=== PATIENT | female | born 1995 ===

== ENCOUNTER 2017-06-14 00:36 | Emergency (ER) | payer OTHER ==
[2017-06-14 00:47] VITALS: PULSE 89
--- NOTE | 2017-06-14 01:20 | C.PDOC ---
History Of Present Illness 22 year old female is 7 weeks and presents to the ED c/o vaginal spotting that she noticed tonight associated with abdominal pain that is described as cramping. Patient denies dyuria, hematuria, back pain, fever, nausea, vomit. Time Seen by Provider: 06/14/17 00:59 Chief Complaint (Nursing): Female Genitourinary History Per: Patient History/Exam Limitations: no limitations Onset/Duration Of Symptoms: Hrs Current Symptoms Are (Timing): Still Present Quality Of Discomfort: Cramping Associated Symptoms: Other (Vaginal spotting). denies: Fever, Chills, Nausea, Vomiting, Back Pain, Urinary Symptoms Recent travel outside of the [place]: No Additional History Per: Patient Abnormal Vaginal Bleeding: No Last Menstral Period: April 10 2017 : 1 Para: 0 Past Medical History Reviewed: Historical Data, Nursing Documentation, Vital Signs Vital Signs: Last Vital Signs Temp 98.4 F 06/14/17 00:45 Pulse 89 06/14/17 00:45 Resp 16 06/14/17 00:45 BP 122/76 06/14/17 00:45 Pulse Ox 100 06/14/17 01:20 - Medical History PMH: No Chronic Diseases Surgical History: No Surg Hx Family History: States: Unknown Family Hx - Social History Hx Alcohol Use: No Hx Substance Use: No - Immunization History Hx Tetanus Toxoid Vaccination: No (pt unsure) Review Of Systems Constitutional: Negative for: Fever, Chills Cardiovascular: Negative for: Chest Pain Respiratory: Negative for: Cough, Shortness of Breath Gastrointestinal: Positive for: Abdominal Pain. Negative for: Nausea, Vomiting Genitourinary: Positive for: Vaginal Discharge. Negative for: Dysuria, Hematuria, Vaginal Bleeding Physical Exam - Physical Exam Appears: Non-toxic, No Acute Distress Skin: Normal Color, Warm, Dry Head: Atraumatic, Normacephalic Oral Mucosa: Moist Chest: Symmetrical Cardiovascular: Rhythm Regular Respiratory: Normal Breath Sounds, No Accessory Muscle Use, No Rales, No Rhonchi , No Wheezing Gastrointestinal/Abdominal: Soft, Tenderness (Suprapubic area), No Guarding, No Rebound Back: No CVA Tenderness Pelvic: Vaginal Discharge, No Cervical Motion Tenderness, Other (Cervical os closed, no tissue) Extremity: Normal ROM, No Pedal Edema Neurological/Psych: Oriented x3, Normal Speech, Normal Cognition Gait: Steady ED Course And Treatment O2 Sat by Pulse Oximetry: 100 Disposition - Disposition Forms: [employer] (Bulgarian)
--- NOTE | 2017-06-14 01:28 | C.PDOC ---
History Of Present Illness 22 year old female who is 7 weeks presents to the ED c/o vaginal spotting that began tonight associated with abdominal pain that is described as cramping. Patient denies any dyuria, hematuria, fever, nausea, back pain. Time Seen by Provider: 06/14/17 00:59 Chief Complaint (Nursing): Female Genitourinary History Per: Patient History/Exam Limitations: no limitations Onset/Duration Of Symptoms: Hrs Current Symptoms Are (Timing): Still Present Quality Of Discomfort: Cramping Associated Symptoms: Other (Vaginal spotting). denies: Fever, Nausea, Vomiting , Back Pain Recent travel outside of the [place]: No Additional History Per: Patient Abnormal Vaginal Bleeding: No Last Menstral Period: April 10 2017 : 1 Para: 0 Past Medical History Reviewed: Historical Data, Nursing Documentation, Vital Signs Vital Signs: Last Vital Signs Temp 98.4 F 06/14/17 00:45 Pulse 89 06/14/17 00:45 Resp 16 06/14/17 00:45 BP 122/76 06/14/17 00:45 Pulse Ox 100 06/14/17 03:12 - Medical History PMH: No Chronic Diseases Surgical History: No Surg Hx Family History: States: Unknown Family Hx - Social History Hx Alcohol Use: No Hx Substance Use: No - Immunization History Hx Tetanus Toxoid Vaccination: No (pt unsure) Review Of Systems Constitutional: Negative for: Fever, Chills Cardiovascular: Negative for: Chest Pain Respiratory: Negative for: Shortness of Breath Gastrointestinal: Positive for: Abdominal Pain. Negative for: Nausea, Vomiting Genitourinary: Positive for: Vaginal Bleeding (spotting). Negative for: Dysuria , Hematuria, Rash Physical Exam - Physical Exam Appears: Non-toxic, No Acute Distress Skin: Normal Color, Warm, Dry Head: Atraumatic, Normacephalic Eye(s): bilateral: Normal Inspection, PERRL, EOMI Oral Mucosa: Moist Cardiovascular: Rhythm Regular Respiratory: Normal Breath Sounds Gastrointestinal/Abdominal: Soft, Tenderness (Suprapubic area), No Guarding, No Rebound Back: No CVA Tenderness Pelvic: Vaginal Bleeding (minimal- bloody dicherge), No Cervical Motion Tenderness, No Cervix Open, No Other (No tissue) Extremity: Normal ROM, No Pedal Edema Neurological/Psych: Oriented x3, Normal Speech, Normal Cognition Gait: Steady ED Course And Treatment - Laboratory Results Result Diagrams: 06/14/17 01:27 06/14/17 01:27 Urine POC: Positive O2 Sat by Pulse Oximetry: 100 (On RA) Pulse Ox Interpretation: Normal - CT Scan/US US transvaginal Other Rad Studies (CT/US): Interpreted By Me, Read By Radiologist, Radiology Report Reviewed CT/US Interpretation: FINDINGS: The uterus measures 10 x 6 x 6.5 cm. The cervix measures 3.5 cm. There is an intrauterine gestational sac containing a yolk sac. There is no pole or heart rate. at this time. Gestational sac diameter corresponds to gestational age of 6 weeks 4 days. There is a small 0.7 x 0.6 x 1 cm hypoechoic structure adjacent to the gestational sac likely. representing a subchorionic bleed. Followup is recommended. The maternal left ovary is normal and measures 4 x 2 x 3 cm. The maternal right ovary is not. identified. IMPRESSION: Intrauterine gestational sac containing yolk sac however no pole or heart rate at this time. Follow up ultrasound recommended. Small subchorionic bleed Progress Note: Plan: -Blood work, UA ordered. -US transvaginal ordered. Pt remains comfortable in ED, no acute distress. Labs an US resullts reviewed and d /w pt who was instructed to follow up with OB in 2 days for repeat Beta and/or US. Pt understand and agree with plan Reevaluation Time: 03:27 Disposition Counseled Patient/Family Regarding: Diagnosis, Need For Followup - Disposition Referrals: PMD, sr. strategic sourcing manager [Other] Disposition: HOME/ ROUTINE Disposition Time: 03:23 Condition: STABLE Additional Instructions: Follow up with PMD in 2 days for repeat BHCG and /or ultrasound Return to ER if worse Instructions: Threatened Miscarriage (ED) Forms: [employer] (Korean) - Clinical Impression Clinical Impression: Threatened - PA / INDUSTRIAL MAINTENANCE TECHNICIAN / Resident Statement MD/DO has reviewed & agrees with the documentation as recorded. - Scribe Statement The provider has reviewed the documentation as recorded by the Scribe Phil Felix All medical record entries made by the Scribe were at my direction and personally dictated by me. I have reviewed the chart and agree that the record accurately reflects my personal performance of the history, physical exam, medical decision making, and the department course for this patient. I have also personally directed, reviewed, and agree with the discharge instructions and disposition.
[2017-06-14 01:33] LABS: BASO # 0.1 K/uL (0.0-0.2); BASO % 0.8 % (0.0-2.0); EOS # 0.1 K/uL (0.0-0.7); EOS % 1.5 % (0.0-4.0); HEMATOCRIT 36.5 % (34.0-47.0); LYMPH # 2.3 K/uL (1.0-4.3); LYMPH % 32.5 % (20.0-40.0); MEAN CORPUSCULAR HEMOGLOBIN 30.4 pg (27.0-31.0); MEAN PLATELET VOLUME 11.3 fL (7.2-11.7); MONO # 0.7 K/uL (0.0-0.8); MONO % 9.4 % (0.0-10.0); NRBC % 0.1 % (0.0-2.0); RED CELL DISTRIBUTION WIDTH 12.4 % (11.5-14.5)
[2017-06-14 01:44] LABS: ALB/GLOB RATIO 1.4 (1.0-2.1); ALKALINE PHOSPHATASE 40 U/L (38-126); ALT/SGPT 31 U/L (9-52); AST/SGOT 21 U/L (14-36); BILIRUBIN,TOTAL 0.9 mg/dL (0.2-1.3); BLOOD UREA NITROGEN 11 mg/dL (7-17); CALCIUM 8.6 mg/dl (8.6-10.4); CARBON DIOXIDE 25 mmol/L (22-30); CHLORIDE 102 mmol/L (98-107); GFR AFRICAN-AMERICAN > 60; GLUCOSE,RANDOM 70 mg/dL (65-105); POTASSIUM 3.6 mmol/L (3.6-5.2); SODIUM 136 mmol/L (132-148); TOTAL PROTEIN 7.2 g/dL (6.3-8.3)
[2017-06-14 01:45] LABS: RBC URINE 2 /hpf (0-3); URINE BACTERIA RARE (<OCC); URINE BILIRUBIN NEGATIVE (NEGATIVE); URINE COLOR Yellow (YELLOW); URINE GLUCOSE (UA) NORMAL (Normal); URINE KETONE NEGATIVE (NEGATIVE); URINE LEUKOCYTE ESTERASE NEG Leu/uL (Negative); URINE PROTEIN 1+ mg/dL (NEGATIVE); URINE UROBILINOGEN NORMAL mg/dL (0.2-1.0); WBC URINE 1 /hpf (0-5)
[2017-06-14 01:48] LABS: URINE BLOOD NEGATIVE (NEGATIVE)
--- NOTE | 2017-06-14 02:44 | US ---
EXAM: US , Transvaginal CLINICAL HISTORY: 22 years old, female; Signs and symptoms; Lmp or gestational age (in weeks): 04-10-2017; Other: Vag bleed; ; Additional info: Vag bleed, TECHNIQUE: Real-time transvaginal obstetrical ultrasound of the maternal pelvis and a first trimester with image documentation. Transvaginal imaging was used for better evaluation of the fetus and adnexa. COMPARISON: No relevant prior studies available. FINDINGS: The uterus measures 10 x 6 x 6.5 cm. The cervix measures 3.5 cm. There is an intrauterine gestational sac containing a yolk sac. There is no pole or heart rate at this time. Gestational sac diameter corresponds to gestational age of 6 weeks 4 days. There is a small 0.7 x 0.6 x 1 cm hypoechoic structure adjacent to the gestational sac likely representing a subchorionic bleed. Followup is recommended. The maternal left ovary is normal and measures 4 x 2 x 3 cm. The maternal right ovary is not identified. IMPRESSION: Intrauterine gestational sac containing yolk sac however no pole or heart rate at this time. Follow up ultrasound recommended. Small subchorionic bleed. EXAM: US First Trimester, Transabdominal EXAM DATE/TIME: 06/14/2017 1:00 AM CLINICAL HISTORY: 22 years old, female; Signs and symptoms; Lmp or gestational age (in weeks): 04-10-2017; Other: Vag bleed; ; Additional info: Vag bleed, TECHNIQUE: Real-time transabdominal obstetrical ultrasound of the maternal pelvis and a first trimester with image documentation. COMPARISON: No relevant prior studies available. FINDINGS: The uterus measures 10 x 6 x 6.5 cm. The cervix measures 3.5 cm. There is an intrauterine gestational sac containing a yolk sac. There is no pole or heart rate at this time. Gestational sac diameter corresponds to gestational age of 6 weeks 4 days. There is a small 0.7 x 0.6 x 1 cm hypoechoic structure adjacent to the gestational sac likely representing a subchorionic bleed. Followup is recommended. The maternal left ovary is normal and measures 4 x 2 x 3 cm. The maternal right ovary is not identified.
[2017-06-14 03:37] VITALS: BP 121/70; RESP 20; TEMP 97.1; O2SAT 98
== END 2017-06-14 03:37 | disposition home or self-care (01) ==
LOC: C.ER 00:36
DX: O20.0 Threatened abortion (principal); Z3A.01 Less than 8 weeks gestation of pregnancy